=== PATIENT | female | born 1970 | race Caucasian/White ===

== ENCOUNTER 2018-09-30 17:58 | Emergency (ER) | payer MEDICAID, OTHER ==
[~2018-09-30] VITALS: Ht 162.6 cm; Wt 120.0 kg
[2018-09-30 18:01] VITALS: Ht 162.6 cm; Wt 120.0 kg
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
[2018-09-30] MEDS ORDERED: morphine 4 MG/ML VIAL IV ONE (19:00)
[2018-09-30] MEDS ORDERED: KETOROLAC 15 MG INJ IV ONE (19:00)
[2018-09-30] MEDS ORDERED: IBUP-1542 PO (20:05)
[2018-09-30 20:23] VITALS: BP 119/72; PULSE 85; RESP 18
== END 2018-09-30 20:33 | disposition home or self-care (01) ==
LOC: E/R 17:58
DX: M54.2 Cervicalgia (principal); F17.210 Nicotine dependence, cigarettes, uncomplicated; R51 Headache; R07.9 Chest pain, unspecified
CPT/HCPCS: 70450; 71045; 72125; 81025; 93005; 96374; 96375; J1885; J2270; Z7502; Z7610